=== PATIENT | male | born 1945 | race Caucasian/White ===

== ENCOUNTER 2019-06-24 | Emergency (ER) | payer MEDICARE ==
[2019-06-24] MEDS ORDERED: CITALOPRAM40 M1 PO (10:55)
[2019-06-24] MEDS ORDERED: SIMVASTATIN20 MG PO (10:55)
[2019-06-24] MEDS ORDERED: METFORMIN500 MG PO (10:56)
[2019-06-24] MEDS ORDERED: TAMSULOSIN HCL0.4 MG PO (10:56)
[2019-06-24] MEDS ORDERED: FISH OIL1000 MG PO (10:57)
[2019-06-24] MEDS ORDERED: ASPIRIN81 MG PO (10:57)
[2019-06-24] MEDS ORDERED: MULTI VIT PO (10:57)
[2019-06-24] MEDS ORDERED: GLUCOSAMINE CHO1 CA3 PO (10:58)
[2019-06-24] MEDS ORDERED: TESSALON PER100 MG PO (11:51)
[2019-06-24] MEDS ORDERED: ZITHROMAX500 MG PO (11:51)
== END 2019-06-24 12:09 | disposition home or self-care (01) ==
DX: J20.9 Acute bronchitis, unspecified (principal); E11.9 Type 2 diabetes mellitus without complications; Z79.84 Long term (current) use of oral hypoglycemic drugs; Z86.73 Personal history of transient ischemic attack (TIA), and cerebral infarction without residual deficits